=== PATIENT | female | born 1995 | race Caucasian/White ===

== ENCOUNTER 2024-07-16 09:10 | Emergency (ER) | payer MEDICAID ==
[~2024-07-16] VITALS: Ht 157.5 cm; Wt 72.6 kg
[2024-07-16 09:16] VITALS: O2SAT 100
[2024-07-16 09:40] VITALS: BP 114/59; PULSE 76; RESP 16; TEMP 98.8; O2SAT 98
[2024-07-16] MEDS ORDERED: BENZ100C86 MT (10:48)
[2024-07-16] MEDS ORDERED: TOPUD MT (10:48)
[2024-07-16] MEDS ORDERED: TUSSL MT (10:48)
== END 2024-07-16 11:04 | disposition home or self-care (01) ==
LOC: ER 09:10
DX: J06.9 Acute upper respiratory infection, unspecified (principal)
CPT/HCPCS: 71045; 99283